=== PATIENT | male | born 1965 | race Caucasian/White ===

== ENCOUNTER 2018-06-04 07:49 | Day surgery (SDC) | payer OTHER ==
[2018-06-04] MEDS ORDERED: cefOXitin SODIUM 2 GM in NS 100 ML IV ONE (08:25)
[2018-06-04] MEDS ORDERED: LR 1,000 ML IV ONE (08:26)
[2018-06-04] MEDS ORDERED: THROMBIN(HUM PLAS)/FIBRINOG/CA 5 ML VIAL TP ONE ×2 (08:30→09:40)
[2018-06-04] MEDS ORDERED: HYDROGEN PEROXIDE 236 ML BOTTLE TP ONE (08:30)
--- NOTE | 2018-06-04 08:38 | PDHPUP ---
History & Physical Update H&P update statement: This history and physical update is based on an assessment of the patient which was completed after admission or registration (within 24 hours), but prior to the surgery/procedure. H&P update: H&P reviewed & patient examined, no change in patient's condition since H&P completed
[2018-06-04] MEDS ORDERED: LIDOCAINE 2% 5 ML SDV ONE (09:05)
[2018-06-04] MEDS ORDERED: fentaNYL 100 MCG/2 ML INJ ONE ×2 (09:05→09:18)
[2018-06-04] MEDS ORDERED: PROPOFOL 200 MG/20 ML VIAL ONE ×4 (09:05→09:35)
[2018-06-04] MEDS ORDERED: BUPIVACAINE 0.5% 30 ML SDV ONE (09:07)
--- NOTE | 2018-06-04 09:26 | PDANEPAE ---
ANE Past Medical History - Cardiovascular History Hx Hypertension: No Hx Arrhythmias: No Hx Chest Pain: No Hx Coronary Artery / Peripheral Vascular Disease: No Hx CHF / Valvular Disease: No Hx Palpitations: No - Pulmonary History Hx COPD: No Hx Asthma/Reactive Airway Disease: No Hx Recent Upper Respiratory Infection: No Hx Oxygen in Use at Home: No Hx Sleep Apnea: No Sleep Apnea Screening Result - Last Documented: Positive - Neurologic History Hx Cerebrovascular Accident: No Hx Seizures: No Hx Dementia: No - Endocrine History Hx Diabetes: No - Renal History Hx Renal Disorders: No - Liver History Hx Hepatic Disorders: No - Neurological & Psychiatric Hx Hx Neurological and Psychiatric Disorders: No - Cancer History Hx Cancer: No - Congenital Disorder History Hx Congenital Disorders: No - GI History Hx Gastrointestinal Disorders: Yes Gastrointestinal History Comment: anal fissure - Chronic Pain History Chronic Pain: No ANE Review of Systems Review of Systems: - Exercise capacity METS (RN): 6 METS ANE Patient History - Allergies Allergies/Adverse Reactions: No Known Allergies Allergy (Unverified 05/07/10 20:43) - Home Medications Home Medications: NO HOME MEDS 05/07/10 [Last Taken Unknown] - NPO status NPO Since - Liquids (Date): 06/03/18 NPO Since - Liquids (Time): 20:00 NPO Since - Solids (Date): 06/03/18 NPO Since - Solids (Time): 20:00 - Smoking Hx Smoking Status: Never smoked - Family Anes Hx Family Hx Anesthesia Complications: none. ANE Labs/Vital Signs - Vital Signs Blood Pressure: 122/80 Heart Rate: 61 Respiratory Rate: 18 O2 Sat (%): 98 Height: 182.88 cm Weight: 83.915 kg ANE Physical Exam - Airway Neck exam: FROM Mallampati Score: Class 1 Mouth exam: normal dental/mouth exam - Pulmonary Pulmonary: no respiratory distress - Cardiovascular Cardiovascular: regular rate and rhythym - ASA Status ASA Status: I ANE Anesthesia Plan Anesthesia Plan: GA w LMA Urgent/Emergent Case: Sukh layton completed preop but documented later for safe timely pt care
[2018-06-04] MEDS ORDERED: ONDANSETRON 4 MG/2 ML VIAL ONE (09:42)
[2018-06-04] MEDS ORDERED: KETOROLAC 30 MG/1 ML SDV ONE (09:42)
[2018-06-04] MEDS ORDERED: DEXAMETHASONE 4 MG/ML VIAL ONE (09:43)
[2018-06-04] MEDS ORDERED: PROMETHAZINE HCL 25 MG/ML INJ IVP PRN (09:51)
[2018-06-04] MEDS ORDERED: fentaNYL 100 MCG/2 ML INJ IVP PRN (09:51)
[2018-06-04] MEDS ORDERED: HYDROCODONE/APAP 5/325 TAB PO PRN (09:51)
[2018-06-04] MEDS ORDERED: NALOXONE HCL 0.4 MG/ML INJ IVP PRN (09:51)
--- NOTE | 2018-06-04 10:01 | POSTOPPROG ---
Post Op Note Date of Operation: 06/04/18 Surgeon: Hero Payne Anesthesiologist: Dr. Holden Anesthesia: LMA Pre-op Diagnosis: Fistula Post-op Diagnosis: same Procedure: REUA, fibrin glue injection Inf/Abcess present in the surg proc area at time of surgery?: Yes Depth: Superfical (Skin SQ) EBL: Minimal
--- NOTE | 2018-06-04 10:28 | GOP ---
DATE OF OPERATION: 06/04/2018 SURGEON: Tyler Payne MD ANESTHESIA: Laryngeal mask anesthesia. ANESTHESIOLOGIST: Dr. Holden PREOPERATIVE DIAGNOSIS: Perianal fistula. POSTOPERATIVE DIAGNOSIS: Perianal fistula. PROCEDURE PERFORMED: 1. Rectal exam under anesthesia. 2. Fibrin glue injection. FINDINGS: Patient had a tract that went to the anterior midline. No other lesions were identified. ESTIMATED BLOOD LOSS: 20 cc. INDICATIONS: 53-year-old male with a history of a perianal abscess and drainage. Risks and benefits of procedure were discussed with patient, questions were answered, and he wished to proceed. DESCRIPTION OF PROCEDURE: Patient was in the supine position. After induction of adequate laryngeal mask anesthesia, the patient moved to modified lithotomy position. He was then prepped and draped i n standard surgical fashion. Anus was serially dilated and an anoscope placed. No obvious lesions were noted. Next, the opening in the right anterior aspect of the perianal area was investigated carefully with a lacrimal duct pro be. Initially, no tract could be identified; therefore, the area was opened slightly with a #15 blad e after injecting 0.5% Marcaine for local anesthesia. Once this performed, gentle interrogation was again performed. This revealed the fistula tract to be proceeding to the anterior midline of the dis meredith rectum. The tract was then curetted thoroughly. The area was then injected with fibrin glue. T he remainder of the area was injected with 0.5% Marcaine for local anesthesia. The distal rectum and anus were again inspected and no other lesions were identified. A dressing was placed and the patie nt was returned to the supine position, extubated. He was then taken to PACU in stable condition. COMPLICATIONS: None. DRAINS: None. /[id number]/MODL
[2018-06-04 12:01] VITALS: BP 110/76
== END 2018-06-04 12:07 | disposition home or self-care (01) ==
LOC: FSGY 07:49
PROVIDERS: ATTEND Surgery
PROC: 3E0H3GC Introduction of Other Therapeutic Substance into Lower GI, Percutaneous Approach (ICD-10-PCS; principal; 2018-06-04 09:00)
PROC: 0DJDXZZ Inspection of Lower Intestinal Tract, External Approach (ICD-10-PCS; principal; 2018-06-04 09:00)
DX: K61.0 Anal abscess (principal)
CPT/HCPCS: J0694; J1100; J1885; J2405; J2704; J3010